=== PATIENT | male | born 1950 | race African-American/Black ===

== ENCOUNTER 2020-06-12 16:50 | Inpatient (IN) | payer OTHER ==
[2020-06-12] MEDS ORDERED: DEXAMETHASONE SOD PHOSPHATE 4 MG/1 ML VIAL IVPUSH ONE (17:39)
[2020-06-12] MEDS ORDERED: DEXAMETHASONE SOD PHOSPHATE 10 MG/1 ML VIAL ONE (17:44)
[2020-06-12 19:16] LABS: BASO % 0.2 % (0-2.0); EOS % 1.4 % (0-4.5); HEMATOCRIT 31.4 % (35.4-49); HEMOGLOBIN 10.5 GM/dL (11.7-16.9); LYMPH % 7.1 % (8-40); MCH 27.4 pg (25.7-33.7); MCHC 33.5 g/dl (32.0-35.9); MEAN CELL VOLUME 81.8 fl (80-96); MEAN PLT VOLUME 7.6 fl (7.5-11.1); NEUT % 84.3 % (42.8-82.8); PLATELET COUNT 485 K/MM3 (134-434); RBC 3.84 M/mm3 (4.00-5.60); RDW 14.6 % (11.9-15.9); WHITE BLOOD COUNT 8.6 K/mm3 (4.0-10.0)
[2020-06-12 19:23] LABS: INR 1.18 (0.83-1.09); PROTHROMBIN TIME (PATIENT) 14.4 SEC (9.7-13.0)
[2020-06-12 19:25] LABS: POTASSIUM 4.5 mmol/L (3.5-5.1)
[2020-06-12 19:26] LABS: ACTIVATED PTT 26.2 SECONDS (25.2-36.5)
[2020-06-12 19:28] LABS: ALBUMIN 2.6 g/dl (3.4-5.0); BLOOD UREA NITROGEN 31.8 mg/dL (7-18); CALCIUM 8.8 mg/dL (8.5-10.1)
[2020-06-12 19:31] LABS: BILIRUBIN,DIRECT 0.3 mg/dL (0.0-0.2); CREATININE 1.6 mg/dL (0.55-1.3)
[2020-06-12 19:33] LABS: BILIRUBIN,TOTAL 0.7 mg/dL (0.2-1); TOT PROT 7.6 g/dl (6.4-8.2)
[2020-06-12] MEDS ORDERED: ASPIRIN 81 MG CHEWABLE TABLETS PO ONE (20:40)
[2020-06-12] MEDS ORDERED: ALBUTEROL SO4 HFA INHALER IH PRN (21:43)
[2020-06-12 22:10] LABS: MAGNESIUM 1.9 mg/dL (1.8-2.4)
[2020-06-12] MEDS ORDERED: ASPIRIN 81 MG CHEWABLE TABLETS ONE (23:18)
[2020-06-12] MEDS ORDERED: ENOXAPARIN NA (PORCINE) 80 MG/0.8 ML DISP.SYRIN SQ ONE (23:18)
[2020-06-12] MEDS: ENOXAPARIN NA (PORCINE) 80 MG/0.8 ML DISP.SYRIN SQ SCH (23:28)
[2020-06-13 06:38] LABS: BASO % 0.2 % (0-2.0); EOS % 0.1 % (0-4.5); HEMATOCRIT 30.5 % (35.4-49); HEMOGLOBIN 10.2 GM/dL (11.7-16.9); LYMPH % 9.4 % (8-40); MCH 27.1 pg (25.7-33.7); MCHC 33.5 g/dl (32.0-35.9); MEAN CELL VOLUME 80.7 fl (80-96); MEAN PLT VOLUME 7.2 fl (7.5-11.1); NEUT % 87.3 % (42.8-82.8); PLATELET COUNT 485 K/MM3 (134-434); RBC 3.78 M/mm3 (4.00-5.60); RDW 14.4 % (11.9-15.9); WHITE BLOOD COUNT 5.9 K/mm3 (4.0-10.0)
[2020-06-13 07:12] LABS: POTASSIUM 5.2 mmol/L (3.5-5.1)
[2020-06-13 07:15] LABS: ALBUMIN 2.5 g/dl (3.4-5.0); BLOOD UREA NITROGEN 35.7 mg/dL (7-18)
[2020-06-13 07:18] LABS: CREATININE 1.5 mg/dL (0.55-1.3)
[2020-06-13 07:19] LABS: BILIRUBIN,TOTAL 0.6 mg/dL (0.2-1); TOT PROT 7.3 g/dl (6.4-8.2)
[2020-06-13] MEDS ORDERED: FUROSEMIDE 40 MG/4 ML INJECTABLE VIAL ONE (08:35)
[2020-06-13] MEDS ORDERED: CEFTRIAXONE 1 GM/50 ML BAG ONE (08:35)
[2020-06-13] MEDS ORDERED: DEXAMETHASONE SOD PHOSPHATE 4 MG/1 ML VIAL ONE (08:59)
[2020-06-13] MEDS ORDERED: ENOXAPARIN NA (PORCINE) 80 MG/0.8 ML DISP.SYRIN SQ ONE (08:59)
[2020-06-13] MEDS ORDERED: ASPIRIN 81 MG CHEWABLE TABLETS ONE (08:59)
[2020-06-13] MEDS: ASPIRIN 81 MG CHEWABLE TABLETS PO SCH (09:42)
[2020-06-13] MEDS: ENOXAPARIN NA (PORCINE) 80 MG/0.8 ML DISP.SYRIN SQ SCH (09:42)
[2020-06-13] MEDS: DEXAMETHASONE SOD PHOSPHATE 4 MG/1 ML VIAL IVPUSH SCH (09:42)
[2020-06-13 12:37] VITALS: BMI 24.3
[2020-06-13] MEDS ORDERED: REMDESIVIR 200 MG in SODIUM CHLORIDE 210 ML IVPB ONE (14:00)
[2020-06-13] MEDS: HEPARIN NA (PORCINE) 5,000 UNITS/ML 1ML VIAL SQ SCH ×2 (14:02→22:33)
[2020-06-13] MEDS ORDERED: INSULIN (LEVEMIR) 100 UNITS/ML UNITS SQ ONE (14:27)
[2020-06-13] MEDS: amLODIPine BESYLATE 5 MG TABLET (FP) PO SCH (14:37)
[2020-06-13] MEDS ORDERED: DEXTROSE 5%-WATER - 50 ML IVPB ONE (15:01)
[2020-06-13] MEDS ORDERED: cefTRIAXone SODIUM 1 GM VIAL ONE (15:01)
[2020-06-13] MEDS: CEFTRIAXONE 1 GM in DEXTROSE 5%-WATER - 50 ML IVPB SCH (15:05)
[2020-06-13] MEDS: LISINOPRIL 10 MG TABLET PO SCH (15:20)
[2020-06-13] MEDS: CHOLECALCIFEROL (VIT D3) 1,000 UNIT (25 MCG) TABLET PO SCH (15:20)
[2020-06-13] MEDS: ZINC SULFATE 220 MG TABLET PO SCH (15:20)
[2020-06-13] MEDS: FAMOTIDINE 20 MG TABLET PO SCH (15:29)
[2020-06-13] MEDS: INSULIN SLIDING SCALE (NOVOLOG) 1 VIAL SQ SCH ×2 (16:40→22:34)
[2020-06-13] MEDS ORDERED: SODIUM ZIRCONIUM CYCLOSILICATE (LOKELMA) 5 GM PACKET PO ONE (18:53)
[2020-06-13] MEDS: ASCORBIC ACID 500 MG TABLET (FP) PO SCH (22:34)
[2020-06-13] MEDS: ATORVASTATIN CA 10 MG TABLET (FP) PO SCH (22:34)
[2020-06-14] MEDS: HEPARIN NA (PORCINE) 5,000 UNITS/ML 1ML VIAL SQ SCH (06:00)
[2020-06-14] MEDS ORDERED: INSULIN (LEVEMIR) 100 UNITS/ML UNITS SQ SCH (07:00)
[2020-06-14] MEDS: ZINC SULFATE 220 MG TABLET PO SCH (09:18)
[2020-06-14] MEDS: LISINOPRIL 10 MG TABLET PO SCH (09:18)
[2020-06-14] MEDS: ASCORBIC ACID 500 MG TABLET (FP) PO SCH ×2 (09:18→23:00)
[2020-06-14] MEDS: amLODIPine BESYLATE 5 MG TABLET (FP) PO SCH (09:19)
[2020-06-14] MEDS: CHOLECALCIFEROL (VIT D3) 1,000 UNIT (25 MCG) TABLET PO SCH (09:19)
[2020-06-14] MEDS: ENOXAPARIN NA (PORCINE) 80 MG/0.8 ML DISP.SYRIN SQ SCH ×2 (09:19→23:00)
[2020-06-14] MEDS: DEXAMETHASONE SOD PHOSPHATE 4 MG/1 ML VIAL IVPUSH SCH (09:19)
[2020-06-14] MEDS: ASPIRIN 81 MG CHEWABLE TABLETS PO SCH (09:19)
[2020-06-14] MEDS: FAMOTIDINE 20 MG TABLET PO SCH (09:22)
[2020-06-14] MEDS: INSULIN SLIDING SCALE (NOVOLOG) 1 VIAL SQ SCH ×4 (09:25→23:00)
[2020-06-14] MEDS: CEFTRIAXONE 1 GM in DEXTROSE 5%-WATER - 50 ML IVPB SCH (09:27)
[2020-06-14 09:30] LABS: BASO % 0.4 % (0-2.0); EOS % 0.1 % (0-4.5); HEMATOCRIT 31.4 % (35.4-49); HEMOGLOBIN 10.8 GM/dL (11.7-16.9); MCH 27.8 pg (25.7-33.7); MCHC 34.5 g/dl (32.0-35.9); MEAN CELL VOLUME 80.4 fl (80-96); MEAN PLT VOLUME 7.1 fl (7.5-11.1); MONO % 6.3 % (3.8-10.2); NEUT % 83.2 % (42.8-82.8); PLATELET COUNT 563 K/MM3 (134-434); RDW 14.4 % (11.9-15.9); WHITE BLOOD COUNT 8.2 K/mm3 (4.0-10.0)
[2020-06-14 09:58] LABS: POTASSIUM 4.5 mmol/L (3.5-5.1)
[2020-06-14 10:08] LABS: ALBUMIN 2.6 g/dl (3.4-5.0); BLOOD UREA NITROGEN 36.8 mg/dL (7-18); CALCIUM 9.2 mg/dL (8.5-10.1); MAGNESIUM 2.3 mg/dL (1.8-2.4)
[2020-06-14 10:11] LABS: CREATININE 1.4 mg/dL (0.55-1.3)
[2020-06-14 10:12] LABS: BILIRUBIN,TOTAL 0.5 mg/dL (0.2-1); PHOSPHOROUS 3.4 mg/dL (2.5-4.9); TOT PROT 7.2 g/dl (6.4-8.2)
[2020-06-14] MEDS ORDERED: REMDESIVIR 100 MG in SODIUM CHLORIDE 230 ML IVPB SCH (14:00)
[2020-06-14] MEDS: INSULIN (LEVEMIR) 100 UNITS/ML UNITS SQ SCH (22:40)
[2020-06-14] MEDS: ATORVASTATIN CA 10 MG TABLET (FP) PO SCH (22:40)
[2020-06-15] MEDS: INSULIN SLIDING SCALE (NOVOLOG) 1 VIAL SQ SCH ×2 (06:40→12:25)
[2020-06-15] MEDS ORDERED: INSULIN (LEVEMIR) 100 UNITS/ML UNITS SQ SCH (07:00)
[2020-06-15 07:49] LABS: BASO % 0.5 % (0-2.0); EOS % 0.1 % (0-4.5); HEMATOCRIT 30.9 % (35.4-49); HEMOGLOBIN 10.3 GM/dL (11.7-16.9); LYMPH % 8.5 % (8-40); MCH 27.2 pg (25.7-33.7); MCHC 33.2 g/dl (32.0-35.9); MEAN CELL VOLUME 81.8 fl (80-96); MEAN PLT VOLUME 7.6 fl (7.5-11.1); MONO % 6.6 % (3.8-10.2); NEUT % 84.3 % (42.8-82.8); PLATELET COUNT 524 K/MM3 (134-434); RBC 3.78 M/mm3 (4.00-5.60); RDW 14.5 % (11.9-15.9); WHITE BLOOD COUNT 8.8 K/mm3 (4.0-10.0)
[2020-06-15 07:55] LABS: POTASSIUM 4.6 mmol/L (3.5-5.1)
[2020-06-15 08:36] LABS: ALBUMIN 2.5 g/dl (3.4-5.0); BLOOD UREA NITROGEN 37.6 mg/dL (7-18); CALCIUM 9.3 mg/dL (8.5-10.1); MAGNESIUM 2.2 mg/dL (1.8-2.4)
[2020-06-15 08:38] LABS: CREATININE 1.3 mg/dL (0.55-1.3)
[2020-06-15 08:39] LABS: PHOSPHOROUS 4.1 mg/dL (2.5-4.9)
[2020-06-15 08:40] LABS: BILIRUBIN,TOTAL 0.4 mg/dL (0.2-1)
[2020-06-15 08:41] LABS: TOT PROT 6.8 g/dl (6.4-8.2)
[2020-06-15] MEDS: amLODIPine BESYLATE 5 MG TABLET (FP) PO SCH (09:56)
[2020-06-15] MEDS: DEXAMETHASONE SOD PHOSPHATE 4 MG/1 ML VIAL IVPUSH SCH (09:57)
[2020-06-15] MEDS: ASCORBIC ACID 500 MG TABLET (FP) PO SCH (09:57)
[2020-06-15] MEDS: LISINOPRIL 10 MG TABLET PO SCH (09:57)
[2020-06-15] MEDS: CHOLECALCIFEROL (VIT D3) 1,000 UNIT (25 MCG) TABLET PO SCH (09:57)
[2020-06-15] MEDS: ENOXAPARIN NA (PORCINE) 80 MG/0.8 ML DISP.SYRIN SQ SCH (09:58)
[2020-06-15] MEDS: INSULIN (LEVEMIR) 100 UNITS/ML UNITS SQ SCH (09:58)
[2020-06-15] MEDS: ASPIRIN 81 MG CHEWABLE TABLETS PO SCH (09:58)
[2020-06-15] MEDS: ZINC SULFATE 220 MG TABLET PO SCH (09:59)
[2020-06-15] MEDS: FAMOTIDINE 20 MG TABLET PO SCH (09:59)
[2020-06-15] MEDS ORDERED: TAMSULOSIN HCL 0.4 MG CAP PO SCH (10:00)
[2020-06-15 15:30] VITALS: BP 124/64; PULSE 66; TEMP 98.5
== END 2020-06-15 17:11 | disposition home or self-care (01) | DRG 189 ==
LOC: JER 16:50 → JERBED 18:25 → J6WEST-2 06-13 12:03
PROVIDERS: ADMIT Internal Medicine; ATTEND Student in an Organized Health Care Education/Training Program
PROC: XW033E5 Introduction of Remdesivir Anti-infective into Peripheral Vein, Percutaneous Approach, New Technology Group 5 (ICD-10-PCS; principal; 2020-06-13)
DX: J96.01 Acute respiratory failure with hypoxia (principal); N17.9 Acute kidney failure, unspecified; I24.8 Other forms of acute ischemic heart disease; B94.8 Sequelae of other specified infectious and parasitic diseases; E11.65 Type 2 diabetes mellitus with hyperglycemia; E78.5 Hyperlipidemia, unspecified; N40.0 Benign prostatic hyperplasia without lower urinary tract symptoms; K21.9 Gastro-esophageal reflux disease without esophagitis; R53.83 Other fatigue; R77.8 Other specified abnormalities of plasma proteins; R53.1 Weakness; R91.8 Other nonspecific abnormal finding of lung field; I12.9 Hypertensive chronic kidney disease with stage 1 through stage 4 chronic kidney disease, or unspecified chronic kidney disease; E11.22 Type 2 diabetes mellitus with diabetic chronic kidney disease; N18.9 Chronic kidney disease, unspecified; E87.5 Hyperkalemia; Z20.822 Contact with and (suspected) exposure to COVID-19
CPT/HCPCS: 36415; 71045-TC-FY; 80053; 80061; 82248; 82550; 82728; 82962; 83036; 83605; 83615; 83721; 83735; 84100; 84439; 84443; 84484; 85025; 85379; 85384; 85610; 85730; 86140; 86769; 86850; 86900; 86901; 87040; 87804; 87899; 93005; 93010; 99285-25; C9399; C9803; J1644; U0003